=== PATIENT | male | born 1945 | race African-American/Black ===

== ENCOUNTER 2023-03-20 10:22 | Inpatient (IN) | payer OTHER ==
[~2023-03-20] VITALS: Ht 182.9 cm; Wt 81.6 kg
[2023-03-20 10:22] VITALS: BP_SYST 102; PULSE 90; RESP 18; TEMP 98; O2SAT 97
[2023-03-20 11:22] LABS: ANION GAP 14 (5-15); CALCIUM 7.7 mg/dL (8.4-11.0); CARBON DIOXIDE 19 mmol/L (23-29); CHLORIDE 107 mmol/L (98-107); CREATININE 2.76 mg/dL (0.55-1.30); GLUCOSE 206 mg/dL (74-106); POTASSIUM 3.8 mmol/L (3.5-5.1); SODIUM SERUM 140 mmol/L (136-145); UREA NITROGEN, BLOOD 77 mg/dL (8-21)
[2023-03-20 11:25] LABS: INR 1.3 (0.80-1.20); PROTHROMBIN TIME 13.6 SECS (9.5-12.5)
[2023-03-20 11:30] LABS: MEAN CORPUSCULAR HEMOGLOBIN 26 pg (27-31); MEAN CORPUSCULAR HGB CONC 32 % (32-36); MEAN CORPUSCULAR VOLUME 83 fL (79.0-98.0); PLATELET COUNT (AUTO) 81 K/uL (130-430); RED BLOOD CELL COUNT(AUTO) 2.54 MIL/uL (4.2-6.2); WHITE BLOOD COUNT (AUTO) 22.9 K/uL (4.8-10.8)
[2023-03-20] MEDS: NACL 0.9% 1,000 ML IV ONE ×2 (11:33→13:09)
[2023-03-20 11:36] LABS: HEMATOCRIT 21.1 % (36-54); HEMOGLOBIN 6.7 g/dL (14.0-18.0)
[2023-03-20 11:40] LABS: ALANINE AMINOTRANSFERASE 80 U/L (12-78); ALBUMIN 1.4 g/dL (3.4-4.8); ASPARTATE AMINOTRANSFERASE 120 U/L (10-37); BILIRUBIN,DIRECT 0.8 mg/dL (0.0-0.3); LIPASE 4 U/L (16-77); TOTAL PROTEIN, SERUM 6.1 g/dL (6.4-8.3)
[2023-03-20] MEDS ORDERED: ASPI-1393 PO (11:53)
[2023-03-20] MEDS ORDERED: SERT25TA77 PO (11:53)
[2023-03-20] MEDS ORDERED: NEU300 PO (11:53)
[2023-03-20] MEDS ORDERED: SENN8.6T19 PO (11:53)
[2023-03-20] MEDS ORDERED: TRAM100T34 PO (11:53)
[2023-03-20] MEDS ORDERED: ZOLP5TAB2 PO (11:53)
[2023-03-20] MEDS ORDERED: AMLO10TA88 PO (11:53)
[2023-03-20] MEDS ORDERED: HYDR25TA4 PO (11:53)
[2023-03-20] MEDS ORDERED: POLY17PO4 PO (11:53)
[2023-03-20] MEDS ORDERED: FAMO20TA8 PO (11:53)
[2023-03-20] MEDS ORDERED: GABA-529 PO (11:53)
[2023-03-20] MEDS ORDERED: COLC0.6T67 PO (11:53)
[2023-03-20] MEDS ORDERED: LIPA1CAP34 PO (11:53)
[2023-03-20] MEDS ORDERED: TAMS-11 PO (11:53)
[2023-03-20] MEDS ORDERED: PRO40 PO (11:53)
[2023-03-20] MEDS ORDERED: PREG75CA PO (11:53)
[2023-03-20] MEDS ORDERED: MELA5TAB12 PO (11:53)
[2023-03-20 12:00] LABS: BAND % (MANUAL) 12 % (0-6); BASOPHILS % (MANUAL) 0 % (0-2); EOSINOPHILS % (MANUAL) 0 % (0-7); LYMPHOCYTES % (MANUAL) 2 % (20-46); MONOCYTES % (MANUAL) 3 % (0-11); PLATELET ESTIMATE DECREASED (ADEQUATE)
[2023-03-20 12:01] LABS: ANISOCYTOSIS 1+; HYPOCHROMASIA SLIGHT
[2023-03-20] MEDS: FAMOTIDINE PF 20 MG/2 ML VIAL IVP ONE (12:15)
[2023-03-20] MEDS: PANTOPRAZOLE SODIUM 40 MG/VIAL (PROTONIX) IVP ONE (12:15)
[2023-03-20] MEDS: cefTRIAXone 1 GM IVPB PREMIX 50 ML IV ONE (12:15)
[2023-03-20 12:31] LABS: BILIRUBIN,URINE NEGATIVE (NEGATIVE); BLOOD, URINE 3+ (NEGATIVE); COLOR,URINE YELLOW (YELLOW); GLUCOSE,URINE NEGATIVE (NEGATIVE); KETONES,URINE NEGATIVE (NEGATIVE); LEUKOCYTE ESTERASE ,URINE 1+ (NEGATIVE); NITRITE, URINE NEGATIVE (NEGATIVE); PH,URINE 5.5 (5.0-8.0); PROTEIN URINE 1+ (NEGATIVE)
[2023-03-20 12:47] LABS: CLARITY/URINE HAZY (CLEAR)
[2023-03-20 12:48] LABS: BACTERIA,URINE None Seen /HPF (None Seen); FINE GRANULAR CASTS,URINE 0-1 /LPF (None Seen)
[2023-03-20 12:49] LABS: COVID19 ANTIGEN SOFIA FIA NEGATIVE (NEGATIVE)
[2023-03-20 12:52] LABS: INFLUENZA TYPE A Negative (NEGATIVE); INFLUENZA TYPE B NEGATIVE (NEGATIVE)
[2023-03-20] MEDS: metroNIDAZOLE 500 mg/NS 100 ML IV ONE (13:08)
[2023-03-20] MEDS ORDERED: ONDANSETRON HCL 4 MG/2 ML VIAL IVP PRN (16:15)
[2023-03-20] MEDS ORDERED: LORazepam 2 MG/ML VIAL IVP PRN (16:15)
[2023-03-20] MEDS ORDERED: NALOXONE HCL 0.4 MG/ML AMP (NARCAN) IVP PRN (16:15)
[2023-03-20] MEDS: D5/0.45 NS 1,000 ML IV ONE (18:35)
[2023-03-20 22:00] VITALS: BP_SYST 115; PULSE 80; RESP 16; TEMP 97; O2SAT 98
[2023-03-20] MEDS: PANTOPRAZOLE SODIUM 40 MG/VIAL (PROTONIX) IVP SCH (22:38)
[2023-03-20 23:10] VITALS: O2SAT 98
[2023-03-21] VITALS (7 sets, daily range): BP systolic 115–140; PULSE 78–83; RESP 16–17; TEMP 97–98.6; O2SAT 96–98
[2023-03-21 07:37] LABS: BASOPHILS % (AUTO) 0.3 % (0.0-2.0); EOSINOPHILS # (AUTO) 0.1 K/uL (0.0-0.4); EOSINOPHILS % (AUTO) 0.5 % (0.0-4.0); HEMOGLOBIN 7.9 g/dL (14.0-18.0); LYMPHOCYTES # (AUTO) 2.2 K/uL (1.0-5.5); LYMPHOCYTES % (AUTO) 12.7 % (20.5-51.5); MEAN CORPUSCULAR HEMOGLOBIN 28 pg (27-31); MEAN CORPUSCULAR HGB CONC 33 % (32-36); MEAN CORPUSCULAR VOLUME 84 fL (79.0-98.0); MONOCYTES # (AUTO) 0.4 K/uL (0.0-1.0); MONOCYTES % (AUTO) 2.6 % (1.7-9.3); NEUTROPHILS # (AUTO) 14.6 K/uL (1.8-7.7); NEUTROPHILS % (AUTO) 83.9 % (40.0-70.0); PLATELET COUNT (AUTO) 67 K/uL (130-430); RED BLOOD CELL COUNT(AUTO) 2.87 MIL/uL (4.2-6.2); WHITE BLOOD COUNT (AUTO) 17.4 K/uL (4.8-10.8)
[2023-03-21 07:46] LABS: ALANINE AMINOTRANSFERASE 57 U/L (12-78); ALBUMIN 1.3 g/dL (3.4-4.8); ANION GAP 12 (5-15); ASPARTATE AMINOTRANSFERASE 68 U/L (10-37); CALCIUM 7.8 mg/dL (8.4-11.0); CARBON DIOXIDE 18 mmol/L (23-29); CHLORIDE 112 mmol/L (98-107); CREATININE 2.39 mg/dL (0.55-1.30); GLUCOSE 165 mg/dL (74-106); PHOSPHORUS 2.8 mg/dL (2.7-4.5); SODIUM SERUM 142 mmol/L (136-145); TOTAL BILIRUBIN 0.7 mg/dL (0.0-1.0); TOTAL PROTEIN, SERUM 5.8 g/dL (6.4-8.3); UREA NITROGEN, BLOOD 75 mg/dL (8-21)
[2023-03-21 07:51] LABS: POTASSIUM 2.9 mmol/L (3.5-5.1)
[2023-03-21] MEDS ORDERED: GADOBENATE DIMEGLUMINE 529 MG/ML, 5 ML VIAL IV ONE (10:44)
[2023-03-21] MEDS: POLYETHYLENE GLYCOL 3350, 17 GM/ POWD.PACK PO ONE (13:02)
[2023-03-21] MEDS: POTASSIUM CHLORIDE 40 MEQ, LIDOCAINE JECT 2% PF 100 MG 50 MG in NS 250 ML IV ONE (13:02)
[2023-03-21] MEDS: metroNIDAZOLE 500 mg/NS 100 ML IV SCH (13:16)
[2023-03-21] MEDS: MORPHINE 2 MG/ML INJ. SYRINGE IVP PRN (18:47)
[2023-03-22 01:28] VITALS: BP_SYST 130; PULSE 79; RESP 20; TEMP 98.9; O2SAT 99
[2023-03-22 06:42] LABS: BASOPHILS % (AUTO) 0.1 % (0.0-2.0); EOSINOPHILS % (AUTO) 0.2 % (0.0-4.0); HEMATOCRIT 25.8 % (36-54); HEMOGLOBIN 8.5 g/dL (14.0-18.0); LYMPHOCYTES # (AUTO) 0.6 K/uL (1.0-5.5); LYMPHOCYTES % (AUTO) 5.1 % (20.5-51.5); MEAN CORPUSCULAR HEMOGLOBIN 27 pg (27-31); MEAN CORPUSCULAR HGB CONC 33 % (32-36); MEAN CORPUSCULAR VOLUME 83 fL (79.0-98.0); MONOCYTES # (AUTO) 0.7 K/uL (0.0-1.0); MONOCYTES % (AUTO) 5.9 % (1.7-9.3); NEUTROPHILS # (AUTO) 10.8 K/uL (1.8-7.7); NEUTROPHILS % (AUTO) 88.7 % (40.0-70.0); PLATELET COUNT (AUTO) 71 K/uL (130-430); RED CELL DISTRIBUTION WIDTH 18.4 % (9.0-15.0); WHITE BLOOD COUNT (AUTO) 12.2 K/uL (4.8-10.8)
[2023-03-22 07:00] LABS: ANION GAP 10 (5-15); CALCIUM 8.5 mg/dL (8.4-11.0); CARBON DIOXIDE 20 mmol/L (23-29); CHLORIDE 114 mmol/L (98-107); CREATININE 2.36 mg/dL (0.55-1.30); GLUCOSE 162 mg/dL (74-106); PHOSPHORUS 3.2 mg/dL (2.7-4.5); POTASSIUM 3.1 mmol/L (3.5-5.1); SODIUM SERUM 144 mmol/L (136-145); UREA NITROGEN, BLOOD 69 mg/dL (8-21)
[2023-03-22 08:07] LABS: ERYTHROCYTE SEDIMENTATION RATE 128 MM/HR (0-15)
[2023-03-22 08:26] VITALS: BP_SYST 152; PULSE 77; RESP 16; TEMP 98.7; O2SAT 95
[2023-03-22] MEDS: POLYETHYLENE GLYCOL 3350, 17 GM/ POWD.PACK PO SCH (08:43)
[2023-03-22] MEDS: LEVOFLOXACIN 250 MG/D5W 50 ML IV SCH (08:44)
[2023-03-22 12:02] VITALS: BP_SYST 142; PULSE 78; RESP 18; TEMP 98.8; O2SAT 98
[2023-03-22 16:59] VITALS: BP_SYST 149; PULSE 76; RESP 17; TEMP 98.5; O2SAT 96
[2023-03-22 17:35] VITALS: BP_SYST 149; PULSE 84; RESP 16; TEMP 96.7; O2SAT 99
[2023-03-22 19:35] VITALS: BP_SYST 145; PULSE 82; RESP 16; TEMP 97; O2SAT 99
[2023-03-22] MEDS: POTASSIUM CHLORIDE 8 MEQ TABLET.ER PO ONE (21:35)
[2023-03-23 00:54] VITALS: BP_SYST 149; PULSE 79; RESP 16; TEMP 97.6; O2SAT 97
[2023-03-23 08:00] VITALS: BP_SYST 146; BP_SYST 148; PULSE 112; RESP 0; RESP 20; TEMP 97.4; O2SAT 97
[2023-03-23 08:08] LABS: EOSINOPHILS % (AUTO) 0.1 % (0.0-4.0); HEMATOCRIT 28.5 % (36-54); HEMOGLOBIN 9.5 g/dL (14.0-18.0); LYMPHOCYTES # (AUTO) 0.7 K/uL (1.0-5.5); LYMPHOCYTES % (AUTO) 4.7 % (20.5-51.5); MEAN CORPUSCULAR HEMOGLOBIN 28 pg (27-31); MEAN CORPUSCULAR HGB CONC 34 % (32-36); MEAN CORPUSCULAR VOLUME 84 fL (79.0-98.0); MONOCYTES # (AUTO) 0.7 K/uL (0.0-1.0); NEUTROPHILS # (AUTO) 12.8 K/uL (1.8-7.7); NEUTROPHILS % (AUTO) 90.2 % (40.0-70.0); PLATELET COUNT (AUTO) 83 K/uL (130-430); RED BLOOD CELL COUNT(AUTO) 3.41 MIL/uL (4.2-6.2); RED CELL DISTRIBUTION WIDTH 18.6 % (9.0-15.0); WHITE BLOOD COUNT (AUTO) 14.2 K/uL (4.8-10.8)
[2023-03-23 08:28] LABS: ERYTHROCYTE SEDIMENTATION RATE > 130 MM/HR (0-15)
[2023-03-23 08:41] LABS: ANION GAP 15 (5-15); CALCIUM 9.1 mg/dL (8.4-11.0); CARBON DIOXIDE 18 mmol/L (23-29); CHLORIDE 114 mmol/L (98-107); CREATININE 2.35 mg/dL (0.55-1.30); GLUCOSE 166 mg/dL (74-106); PHOSPHORUS 3.6 mg/dL (2.7-4.5); SODIUM SERUM 147 mmol/L (136-145); UREA NITROGEN, BLOOD 67 mg/dL (8-21)
[2023-03-23 08:46] LABS: POTASSIUM 2.9 mmol/L (3.5-5.1)
[2023-03-23 08:56] LABS: TOTAL IRON BIND. CAPACITY 69 ug/dL (250-450)
[2023-03-23] MEDS: POTASSIUM CHLORIDE 20 MEQ TABLET.ER PO ONE (09:42)
[2023-03-23] MEDS: MORPHINE 4 MG INJ. 4 MG/ML VIAL IVP PRN (09:53)
[2023-03-23 12:37] VITALS: BP_SYST 147; PULSE 80; RESP 17; TEMP 97.3; O2SAT 97
[2023-03-23] MEDS: D5W 1,000 ML IV SCH (15:21)
[2023-03-23 20:00] VITALS: BP_SYST 131; PULSE 73; RESP 16; TEMP 97.5
[2023-03-24 00:02] VITALS: BP_SYST 128; PULSE 70; RESP 18; TEMP 98.1; O2SAT 97
[2023-03-24 06:13] LABS: BASOPHILS % (AUTO) 0.2 % (0.0-2.0); EOSINOPHILS # (AUTO) 0.1 K/uL (0.0-0.4); EOSINOPHILS % (AUTO) 0.4 % (0.0-4.0); HEMATOCRIT 26.2 % (36-54); HEMOGLOBIN 8.6 g/dL (14.0-18.0); LYMPHOCYTES # (AUTO) 0.9 K/uL (1.0-5.5); LYMPHOCYTES % (AUTO) 5.9 % (20.5-51.5); MEAN CORPUSCULAR HEMOGLOBIN 27 pg (27-31); MEAN CORPUSCULAR HGB CONC 33 % (32-36); MEAN CORPUSCULAR VOLUME 84 fL (79.0-98.0); MONOCYTES # (AUTO) 0.8 K/uL (0.0-1.0); MONOCYTES % (AUTO) 5.2 % (1.7-9.3); NEUTROPHILS # (AUTO) 13.1 K/uL (1.8-7.7); NEUTROPHILS % (AUTO) 88.3 % (40.0-70.0); PLATELET COUNT (AUTO) 83 K/uL (130-430); RED BLOOD CELL COUNT(AUTO) 3.12 MIL/uL (4.2-6.2); WHITE BLOOD COUNT (AUTO) 14.9 K/uL (4.8-10.8)
[2023-03-24 06:28] LABS: ALANINE AMINOTRANSFERASE 24 U/L (12-78); ALBUMIN 1.4 g/dL (3.4-4.8); ANION GAP 8 (5-15); ASPARTATE AMINOTRANSFERASE 18 U/L (10-37); CALCIUM 8.3 mg/dL (8.4-11.0); CARBON DIOXIDE 22 mmol/L (23-29); CHLORIDE 116 mmol/L (98-107); GLUCOSE 133 mg/dL (74-106); LIPASE 5 U/L (16-77); PHOSPHORUS 3.6 mg/dL (2.7-4.5); POTASSIUM 3.3 mmol/L (3.5-5.1); SODIUM SERUM 146 mmol/L (136-145); TOTAL BILIRUBIN 1.2 mg/dL (0.0-1.0); TOTAL PROTEIN, SERUM 6.2 g/dL (6.4-8.3); UREA NITROGEN, BLOOD 67 mg/dL (8-21)
[2023-03-24 08:35] VITALS: BP_SYST 156; PULSE 75; RESP 18; TEMP 98.6; O2SAT 99
[2023-03-24 08:36] VITALS: O2SAT 99
[2023-03-24 08:36] LABS: ERYTHROCYTE SEDIMENTATION RATE 119 MM/HR (0-15)
[2023-03-24 08:47] VITALS: BP_SYST 156; PULSE 75; RESP 18; TEMP 98.6; O2SAT 99
[2023-03-24] MEDS ORDERED: [UNRECOGNIZED DRUG - CODE] IV (10:00)
[2023-03-24] MEDS ORDERED: PROI40 IVP (10:00)
[2023-03-24] MEDS ORDERED: POLY17PO4 PO (10:00)
[2023-03-24] MEDS ORDERED: FLAPM500 IV (10:00)
[2023-03-24] MEDS: POTASSIUM CHLORIDE 20 MEQ TABLET.ER PO ONE (10:24)
[2023-03-24] MEDS ORDERED: CALCIUM GLUCONATE 2 GM in NS 100 ML IV ONE (11:00)
[2023-03-24] MEDS ORDERED: PIPERACILLIN/TAZO 2.25G/DEX-IS 50 ML IV SCH (12:00)
[2023-03-25 01:06] LABS: AFP, TUMOR MARKER <1.8 ng/mL (0.0-8.4)
[2023-03-25 06:06] LABS: FERRITIN 1697 ng/mL (30-400)
[2023-03-25 07:07] LABS: HEPATITIS A AB, IgM Negative (Negative); HEPATITIS B CORE AB, IgM Negative (Negative); HEPATITIS B SURFACE AG Negative (Negative); HEPATITIS C VIRUS AB Non Reactive (Non Reactive)
[2023-03-25 11:07] LABS: AFP, TUMOR MARKER <1.8 ng/mL (0.0-8.4); CARBOHYDRATE AG 19-9 114 U/mL (0-35); CEA 2.4 ng/mL (0.0-4.7)
== END 2023-03-24 18:36 | disposition short-term general hospital (02) | DRG 871 ==
LOC: SED 10:22 → STU 13:54
PROVIDERS: ADMIT Preventive Medicine Preventive Medicine/Occupational Environmental Medicine; ATTEND Preventive Medicine Preventive Medicine/Occupational Environmental Medicine
PROC: 30233N1 Transfusion of Nonautologous Red Blood Cells into Peripheral Vein, Percutaneous Approach (ICD-10-PCS; principal; 2023-03-20)
DX: A41.9 Sepsis, unspecified organism (principal); E43 Unspecified severe protein-calorie malnutrition; I21.4 Non-ST elevation (NSTEMI) myocardial infarction; N17.9 Acute kidney failure, unspecified; E87.0 Hyperosmolality and hypernatremia; K86.1 Other chronic pancreatitis; N39.0 Urinary tract infection, site not specified; K21.9 Gastro-esophageal reflux disease without esophagitis; E88.09 Other disorders of plasma-protein metabolism, not elsewhere classified; G47.00 Insomnia, unspecified; N40.0 Benign prostatic hyperplasia without lower urinary tract symptoms; D50.9 Iron deficiency anemia, unspecified; E83.51 Hypocalcemia; R74.01 Elevation of levels of liver transaminase levels; K59.00 Constipation, unspecified; K76.9 Liver disease, unspecified; K80.20 Calculus of gallbladder without cholecystitis without obstruction; M10.9 Gout, unspecified; I12.9 Hypertensive chronic kidney disease with stage 1 through stage 4 chronic kidney disease, or unspecified chronic kidney disease; N18.30 Chronic kidney disease, stage 3 unspecified; Z20.822 Contact with and (suspected) exposure to COVID-19; N28.1 Cyst of kidney, acquired; K52.89 Other specified noninfective gastroenteritis and colitis; D69.6 Thrombocytopenia, unspecified; E87.6 Hypokalemia; Z88.1 Allergy status to other antibiotic agents; Z79.899 Other long term (current) drug therapy; Z74.01 Bed confinement status; Z79.82 Long term (current) use of aspirin; Z86.73 Personal history of transient ischemic attack (TIA), and cerebral infarction without residual deficits; Z86.79 Personal history of other diseases of the circulatory system; Z68.24 Body mass index [BMI] 24.0-24.9, adult
CPT/HCPCS: 36415; 71045; 74018; 76376; 76700; 80048; 80053; 80074; 80076; 81000; 81001; 81015; 82105; 82378; 82728; 83540; 83550; 83605; 83690; 83735; 84100; 84484; 85007; 85025; 85027; 85610; 85651; 85730; 86301; 86886; 86900; 86901; 86920; 87040; 87081; 87086; 93005; 93306; 96365; 96375; 97112-GP; 97163-GP; 99291; A9577; C9113; G0378; J0610; J0696; J1956; J2270; J2543; J3480; J3490; J7050; P9021